=== PATIENT | male | born 1995 | race Caucasian/White ===

== ENCOUNTER 2018-07-02 15:28 | Emergency (ER) | payer OTHER ==
--- NOTE | 2018-07-02 16:47 | EDM.PDOC ---
ED HPI GENERAL MEDICAL PROBLEM - General Chief Complaint: Abdominal Pain Stated Complaint: BLOODY STOOL Time Seen by Provider: 07/02/18 15:43 Source of Information: Reports: Patient History Limitations: Reports: No Limitations - History of Present Illness INITIAL COMMENTS - FREE TEXT/NARRATIVE: 23-year-old male previously healthy with no significant past medical history presenting with a chief complaint of rectal bleeding. Patient states he's had rectal bleeding over the past several weeks - 4, happens a few times/week. About 2 months ago he did note some left lower quadrant abdominal pain which was mild to moderate in severity lasted for about a day but resolved on its own. Since that time he's had some intermittent mild left lower quadrant abdominal pain. Versus rectal bleeding he's seen streaks of red in the stool over the past couple weeks today he had a rather large bloody bowel movement he states with some red blood. Denies any black tarry stools however also denies any coffee-ground emesis or hematemesis. Patient has never had endoscopy performed. He has no significant family history of colon cancer. Also no history of inflammatory bowel disease in the patient or his family. No history of prior abdominal surgeries. Left Abdomen Pain Score (Numeric/FACES): 2 - Related Data Allergies Allergy/AdvReac Type Severity Reaction Status Date / Time No Known Allergies Allergy Verified 07/02/18 15:43 Home Meds: Home Meds . [No Known Home Meds] 07/02/18 [History] Past Medical History - Past Health History Medical/Surgical History: Denies Medical/Surgical History Gastrointestinal History: Reports: Other (See Below) Other Gastrointestinal History: lacerated spleen about 6 yrs ago and a cyst formed to it between the laceration of the spleen-football injury Social & Family History - Tobacco Use Smoking Status *Q: Current Every Day Smoker Years of Tobacco use: 1 Packs/Tins Daily: 0.5 - Caffeine Use Caffeine Use: Reports: Coffee - Recreational Drug Use Recreational Drug Use: No ED ROS GENERAL - Review of Systems Review Of Systems: See Below Constitutional: Reports: No Symptoms HEENT: Reports: No Symptoms Respiratory: Reports: No Symptoms. Denies: Shortness of Breath Cardiovascular: Denies: Chest Pain, Dyspnea on Exertion, Palpitations Endocrine: Denies: Fatigue GI/Abdominal: Reports: Abdominal Pain, Hematochezia Musculoskeletal: Reports: No Symptoms Skin: Reports: No Symptoms Neurological: Reports: No Symptoms ED EXAM, GI/ABD - Physical Exam Exam: See Below Exam Limited By: No Limitations General Appearance: Alert, No Apparent Distress Head: Atraumatic, Normocephalic Respiratory/Chest: No Respiratory Distress, Lungs Clear Cardiovascular: Normal Peripheral Pulses, Regular Rate, Rhythm GI/Abdominal Exam: Soft, No Distention, Other (mild LLQ TTP, no rebound or guarding) Rectal (Males) Exam: Normal Exam Back Exam: Normal Inspection, Full Range of Motion Extremities: Normal Inspection, Normal Range of Motion Neurological: Alert, Oriented, CN II-XII Intact, No Motor/Sensory Deficits Psychiatric: Normal Affect, Normal Mood Skin Exam: Warm, Dry, Intact Course - Vital Signs Last Recorded V/S: Last Vital Signs Temp 36.6 C 07/02/18 15:39 Pulse 65 07/02/18 15:39 Resp 20 07/02/18 15:39 BP 131/74 07/02/18 15:39 Pulse Ox 100 07/02/18 15:39 - Orders/Labs/Meds Labs: Laboratory Tests 07/02/18 07/02/18 07/02/18 Range/Units 16:30 16:30 16:30 WBC 5.95 (4.23-9.07) K/mm3 RBC 4.54 L (4.63-6.08) M/mm3 Hgb 13.8 (13.7-17.5) gm/L Hct 40.2 (40.1-51.0) % MCV 88.5 (79.0-92.2) fl MCH 30.4 (25.7-32.2) pg MCHC 34.3 (32.2-35.5) g/dl RDW Std Deviation 38.6 (35.1-43.9) fL Plt Count 310 (163-337) K/mm3 MPV 8.9 L (9.4-12.3) fl Neut % (Auto) 66.3 (34.0-67.9) % Lymph % (Auto) 24.5 (21.8-53.1) % Cache % (Auto) 5.4 (5.3-12.2) % Eos % (Auto) 3.5 (0.8-7.0) Baso % (Auto) 0.3 (0.1-1.2) % Neut # (Auto) 3.94 (1.78-5.38) K/mm3 Lymph # (Auto) 1.46 (1.32-3.57) K/mm3 Cache # (Auto) 0.32 (0.30-0.82) K/mm3 Eos # (Auto) 0.21 (0.04-0.54) K/mm3 Baso # (Auto) 0.02 (0.01-0.08) K/mm3 PT 11.0 (9.5-12.1) SECONDS INR 1.01 Sodium 142 (136-145) mEq/L Potassium 3.8 (3.5-5.1) mEq/L Chloride 105 (98-107) mEq/L Carbon Dioxide 27 (21-32) mEq/L Anion Gap 13.8 (5-15) BUN 12 (7-18) mg/dL Creatinine 0.9 (0.7-1.3) mg/dL Est Cr Clr Drug Dosing 143.03 mL/min Estimated GFR (MDRD) > 60 (>60) mL/min BUN/Creatinine Ratio 13.3 L (14-18) Glucose 92 (74-106) mg/dL Calcium 8.7 (8.5-10.1) mg/dL Total Bilirubin 0.5 (0.2-1.0) mg/dL AST 20 (15-37) U/L ALT 24 (16-63) U/L Alkaline Phosphatase 73 (46-116) U/L Total Protein 6.8 (6.4-8.2) g/dl Albumin 4.1 (3.4-5.0) g/dl Globulin 2.7 gm/dL Albumin/Globulin Ratio 1.5 (1-2) - Re-Assessments/Exams Free Text/Narrative Re-Assessment/Exam: 23-year-old male presenting with a chief complaint of abdominal pain. On initial evaluation the vital signs are normal. Physical exam is notable for mild left lower quadrant tenderness palpation but no rebound or guarding. Rectal exam is grossly negative for blood and also Hemoccult negative at the bedside. No masses were palpated on the exam either. No hemorrhoids are appreciated externally either. CMP CBC were normal no significant anemia at all. Platelets are normal and coags are normal. Had a discussion with the patient about the nonemergent nature of his rectal bleeding. However I did clearly expressed to him that this could be from a serious cause such as colon cancer or inflammatory bowel disease. He does know it is very important to follow-up with a primary care provider for further workup which likely will include a colonoscopy and possibly some more blood work. All questions were answered and the patient was discharged home. Departure - Departure Time of Disposition: 18:02 Disposition: Home, Self-Care 01 Clinical Impression: Rectal bleeding - Discharge Information *PRESCRIPTION DRUG MONITORING PROGRAM REVIEWED*: No *COPY OF PRESCRIPTION DRUG MONITORING REPORT IN PATIENT MARK: No Instructions: Rectal Bleeding, [id number] Referrals: PCP,Not In Area [Primary Care Provider] - Forms: ED Department Discharge Additional Instructions: You've been seen in the ED today for rectal bleeding and abdominal pain. At this time there does not appear to be any emergency. You are not anemic and you are not currently bleeding. However, you need to have further tests done as an outpatient to make sure you don't have serious causes for rectal bleeding such as cancer or inflammatory bowel disease. Establish care with a PCP in the area to get these tests ordered. Please return to the ED if you have massive rectal bleeding, have chest pain, shortness of breath or feel like you're going to pass out.
== END 2018-07-02 18:17 | disposition home or self-care (01) ==
LOC: JD.ED 15:28
DX: K62.5 Hemorrhage of anus and rectum (principal); F17.210 Nicotine dependence, cigarettes, uncomplicated
CPT/HCPCS: 36415; 80053; 85025; 85610; 99283